=== PATIENT | male | born 1945 | race Caucasian/White ===

== ENCOUNTER 2016-07-02 07:20 | Day surgery (SDC) | payer MEDICARE, OTHER ==
--- NOTE | ~2016-07-02 | EGD ---
EGD REPORT [facility] [address] [place]. [id number] NAME: HARLEY JOHNSON : [birth year] STATUS : [place] [facility] [place] [facility] [place] PAT#: [id number] AGE: 70 ADM/REG DATE : 07/02/16 MR#: [id number] REPORT SERV DATE: 07/02/16 DICTATED BY: ADI BRUNER DATE: 07/02/16 REPORT STATUS : Draft TRANS[facility]IBED BY: [facility] DATE: 07/02/16 Endoscopy Center Patient Name: Harley Johnson Date of : 1945 Attending MD: ADI BRUNER MD Procedure Date No Time: 07/02/2016 Procedure: Colonoscopy Indications: High risk colon cancer surveillance: Personal history of colonic polyps Referring MD: Jorge MONIQUE MD Medicines: as per anesthesia Complications: No immediate complications. Procedure: Pre-Anesthesia Assessment: - ASA Grade Assessment: II - A patient with mild systemic disease. After I obtained informed consent, the scope was passed under direct vision. Throughout the procedure, the patient's blood pressure, pulse, and oxygen saturations were monitored continuously. The PCF [id number] was introduced through the anus and advanced to the cecum, identified by appendiceal orifice and ileocecal valve. The colonoscopy was performed without difficulty. The patient tolerated the procedure. The quality of the bowel preparation was adequate to identify polyps. Findings: The perianal and digital rectal examinations were normal. Internal hemorrhoids were found during endoscopy and were mild. Impression: - Internal hemorrhoids. Recommendation: - Repeat colonoscopy in 5 years for surveillance. Procedure Code(s): --- Professional --- 89281, Colonoscopy, flexible, proximal to splenic flexure; diagnostic, with or without collection of specimen(s) by brushing or washing, with or without colon decompression (separate procedure) Diagnosis Code(s): --- Professional --- K64.8, Other hemorrhoids Z86.010, Personal history of colonic polyps CPT copyright 2013 [employer]. All rights reserved. EGD REPORT [facility] [address] [facility] [facility] [address] NAME: HARLEY JOHNSON : [birth year] STATUS : [place] [facility] [place] [facility] [place] PAT#: [id number] AGE: 70 ADM/REG DATE : 07/02/16 MR#: [id number] REPORT SERV DATE: 07/02/16 DICTATED BY: ADI BRUNER. DATE: 07/02/16 REPORT STATUS : Draft TRANSCRIBED BY: [employer] DATE: 07/02/16 The codes documented in this report are preliminary and upon green meat packer review may be revised to meet current compliance requirements. ADI BRUNER MD 07/02/2016 9:19 AM This report has been signed electronically. Number of Addenda: 0 Note Initiated On: 07/02/2016 8:56 AM Scope Withdrawal Time 0 hours 6 minutes 4 seconds [id number] [address] [id number]
[~2016-07-02 07:20] MED LIST: *DENIES; ALLEGRA180 PO
== END 2016-07-02 23:59 | disposition home or self-care (01) ==
LOC: DMU 07:20
PROVIDERS: Internal Medicine Gastroenterology
PROC: 0DJ08ZZ Inspection of Upper Intestinal Tract, Via Natural or Artificial Opening Endoscopic (ICD-10-PCS; principal; 2016-07-02 08:30)
DX: Z12.11 Encounter for screening for malignant neoplasm of colon (principal); K64.8 Other hemorrhoids; Z86.010 Personal history of colon polyps; Z80.9 Family history of malignant neoplasm, unspecified; J45.909 Unspecified asthma, uncomplicated; M77.9 Enthesopathy, unspecified; M25.70 Osteophyte, unspecified joint; Z87.891 Personal history of nicotine dependence; Z91.030 Bee allergy status; Z98.890 Other specified postprocedural states